=== PATIENT | male | born 1965 | race African-American/Black ===

== ENCOUNTER 2019-02-18 14:35 | Emergency (ER) | payer MEDICAID ==
[~2019-02-18] VITALS: Ht 185.4 cm; Wt 100.0 kg
[~2019-02-18 14:35] MED LIST: AMLO10TA4 PO; AMLO10TA80 PO; BENA10TA12 PO; INSULIN SUBCUT; KEPP500 PO; OMEP20CA5 PO; humulin SUBCUT; insulin
[2019-02-18] MEDS ORDERED: INSULIN REGULAR (HUMULIN R) UD 100 UNITS/ML SYR IV ONE (16:15)
[2019-02-18] MEDS ORDERED: LABETALOL HCL 20MG/4ML CARPUJECT IV ONE (16:15)
[2019-02-18] MEDS ORDERED: SODIUM CHLORIDE 0.9% 1,000 ML IV ONE (16:15)
[2019-02-18] MEDS ORDERED: INSULIN REGULAR (HUMULIN R) 300UNITS/3ML IV NR (16:30)
[2019-02-18] MEDS ORDERED: LABETALOL 5MG/ML SYR 20 MG/4 ML SYRINGE IV NR (16:30)
[2019-02-18 17:04] LABS: CHLORIDE 104 mEq/L (98-107)
[2019-02-18 17:15] VITALS: BP 184/121
== END 2019-02-18 18:19 | disposition home or self-care (01) ==
LOC: ER 15:13
DX: E10.65 Type 1 diabetes mellitus with hyperglycemia (principal); I16.0 Hypertensive urgency; G40.909 Epilepsy, unspecified, not intractable, without status epilepticus; Z79.4 Long term (current) use of insulin; Z79.899 Other long term (current) drug therapy
CPT/HCPCS: 36415; 80048; 96361; 96374; 96375; 99283; J1815; J3490; J7030; Z7610